=== PATIENT | female | born 1945 | race Two or more races ===

== ENCOUNTER 2020-10-01 11:57 | Emergency (ER) | payer BC, OTHER, SELFPAY ==
[~2020-10-01] VITALS: Ht 152.4 cm; Wt 61.2 kg
[2020-10-01 12:03] VITALS: BP_SYST 129
[2020-10-01] MEDS ORDERED: ASPIRIN 81 MG TAB.CHEW PO ONE (13:00)
[2020-10-01 13:24] LABS: ANION GAP 10 (5-15); CALCIUM 9.2 mg/dL (8.4-11.0); CHLORIDE 105 mmol/L (98-107); CREATININE 0.56 mg/dL (0.55-1.30); GLUCOSE 87 mg/dL (70-99); POTASSIUM 3.8 mmol/L (3.5-5.1); SODIUM SERUM 141 mmol/L (136-145); UREA NITROGEN, BLOOD 8 mg/dL (8-21)
[2020-10-01 13:25] LABS: BASOPHILS % (AUTO) 0.9 % (0.0-2.0); EOSINOPHILS # (AUTO) 0.1 K/uL (0.0-0.4); HEMATOCRIT 38.1 % (36-48); HEMOGLOBIN 12.9 g/dL (12.0-16.0); LYMPHOCYTES # (AUTO) 1.4 K/uL (1.0-5.5); LYMPHOCYTES % (AUTO) 27.4 % (20.5-51.5); MEAN CORPUSCULAR HEMOGLOBIN 31 pg (27-31); MEAN CORPUSCULAR HGB CONC 34 % (32-36); MEAN CORPUSCULAR VOLUME 91 fL (79.0-98.0); MONOCYTES # (AUTO) 0.5 K/uL (0.0-1.0); MONOCYTES % (AUTO) 9.5 % (1.7-9.3); NEUTROPHILS # (AUTO) 3.1 K/uL (1.8-7.7); NEUTROPHILS % (AUTO) 60.2 % (40.0-70.0); PLATELET COUNT (AUTO) 262 K/uL (130-430); RED BLOOD CELL COUNT(AUTO) 4.18 MIL/uL (4.2-6.2); WHITE BLOOD COUNT (AUTO) 5.1 K/uL (4.8-10.8)
[2020-10-01] MEDS ORDERED: LOSARTAN POTASSIUM 50 MG TABLET (COZAAR) PO ONE (13:30)
[2020-10-01 13:37] LABS: C-REACTIVE PROTEIN QUANT 1.3 mg/dL (0-0.5)
[2020-10-01 13:42] LABS: ALANINE AMINOTRANSFERASE 24 U/L (12-78); ALBUMIN 3.6 g/dL (3.4-4.8); ASPARTATE AMINOTRANSFERASE 14 U/L (10-37); TOTAL BILIRUBIN 0.5 mg/dL (0.0-1.0)
[2020-10-01 16:46] VITALS: BP_SYST 129
== END 2020-10-01 16:46 | disposition home or self-care (01) ==
LOC: SED 11:57
DX: R07.9 Chest pain, unspecified (principal); Z20.822 Contact with and (suspected) exposure to COVID-19
CPT/HCPCS: 36415; 71045; 80053; 83880; 84484; 85025; 86140; 93005; 99285